=== PATIENT | female | born 1990 | race Caucasian/White ===

== ENCOUNTER 2023-09-04 20:07 | Emergency (ER) | payer OTHER, SELFPAY ==
[2023-09-04] VITALS (9 sets, daily range): BP systolic 140–153; BP diastolic 72–98; PULSE 88–101; TEMP 36.9; O2SAT 97–100; BMI 44.1
--- NOTE | 2023-09-04 20:16 | ED_ITS ---
Documented by User: VERNON Flores 09/04/23 21:26 HPI - Chest Pain General Chief Complaint: Chest Pain Stated Complaint: CP Time Seen by Provider: 09/04/23 20:08 Source: patient Mode of arrival: Wheelchair History of Present Illness HPI narrative: Patient is a 33-year-old female with a history of anxiety, ADHD and bipolar disorder who presents to the emergency department for sharp pain in the sternum that began while she was working. She states the pain is easing at this time but she had sharp stabbing pain in the sternum radiating through to her back between her shoulder blades and up to her jaw. She denies any burning. She states the pain is worse with deep breathing and coughing. She has had a 2-week history of upper respiratory illness with cough and congestion. She smokes 2 to 3 cigarettes/day and uses a vape. She is not concerned for , she has a Mirena in place. She has not had any swelling in the legs. She has no history of cardiac or pulmonary issues. She states she has been particularly stressed and anxious in the last 2 weeks. No medications taken prior to arrival. Risk Factors Coronary artery disease risk factors: smoking history Related Data Home Medications ?Medication ?Instructions ?Recorded ?Confirmed dextroamphetamine-amphetamine 10 10 mg PO DAILY 09/04/23 09/04/23 mg tablet gabapentin 800 mg tablet 800 mg PO BID 09/04/23 09/04/23 lamotrigine 200 mg tablet 200 mg PO BID 09/04/23 09/04/23 lisdexamfetamine 70 mg capsule 70 mg PO QPM 09/04/23 09/04/23 (Vyvanse) trazodone 100 mg tablet 100 mg PO DAILY 09/04/23 09/04/23 Previous Rx's ?Medication ?Instructions ?Recorded doxycycline hyclate 100 mg tablet 100 mg PO BID 7 days #14 tabs 09/04/23 hydroxyzine pamoate 25 mg capsule 25 mg PO Q6H PRN anxiety #20 caps 09/04/23 (Vistaril) methylprednisolone 4 mg tablets in See Rx Instructions .Route 09/04/23 a dose pack (Medrol (Elder)) .COMPLEX #21 ea Allergies Allergy/AdvReac Type Severity Reaction Status Date / Time sulfamethoxazole Allergy Severe Verified 09/04/23 20:15 [From Bactrim] trimethoprim [From Bactrim] Allergy Severe Verified 09/04/23 20:15 Review of Systems ROS Constitutional Denies: fever or chills Ears, nose, mouth, and throat Reports: nasal congestion Cardiovascular Reports: chest pain and palpitations Respiratory Reports: shortness of breath and cough Gastrointestinal Denies: abdominal pain, nausea or vomiting Musculoskeletal Denies: back pain or neck pain Integumentary/Breast Denies: rash Psychiatric Reports: anxiety Hematologic/Lymphatic Denies: easy bruising or easy bleeding [facility] Medical History (Updated 09/04/23 @ 21:15 by VERNON Flores) Depression ?F32.A - Depression, unspecified (ICD-10) Bipolar 1 disorder ?F31.9 - Bipolar disorder, unspecified (ICD-10) Exam Narrative Exam Narrative: Gen.: Awake, alert, in no distress Head: Normocephalic, atraumatic ENT: Moist mucous membranes; Bilateral TMs clear, no pharyngeal erythema with airway widely open and patent, uvula midline Respiratory: No respiratory distress, lungs clear bilaterally Cardio: Regular rate and rhythm Extremities: Moves extremities equally, no pedal edema Psych: Normal mood and affect Neuro: No focal neuro deficit Skin: Warm, dry, intact Constitutional Vital Signs, click to edit/add: Last Vital Signs Temp 98.5 F 09/04/23 20:11 Pulse 91 H 09/04/23 21:35 Resp 14 09/04/23 21:35 BP 140/72 09/04/23 21:35 Pulse Ox 97 09/04/23 21:35 O2 Del Method Room Air 09/04/23 21:35 Course Vital Signs Vital signs: Vital Signs Temperature 98.5 F 09/04/23 20:11 Pulse Rate 88 09/04/23 20:11 Respiratory Rate 18 09/04/23 20:11 Blood Pressure 153/89 H 09/04/23 20:11 Pulse Oximetry 100 09/04/23 20:11 Oxygen Delivery Method Room Air 09/04/23 20:11 Temperature 98.5 F 09/04/23 20:11 Pulse Rate 91 H 09/04/23 21:35 Respiratory Rate 14 09/04/23 21:35 Blood Pressure 140/72 09/04/23 21:35 Pulse Oximetry 97 09/04/23 21:35 Oxygen Delivery Method Room Air 09/04/23 21:35 MDM - Chest Pain MDM Narrative Medical decision making narrative: Patient treated with IV Ativan, She had improvement and is resting comfortably on reevaluation. Lab studies including D-dimer and troponin are within normal limits. Chest x-ray is unremarkable and patient has stable vital signs in the ER. Discussed with the patient that anxiety may be playing a role in her symptoms, although she has had a 2-week history of upper respiratory illness and is a current smoker. She may be experiencing pleurisy and will be treated with doxycycline based on the duration of her symptoms as well as Medrol Dosepak. She was given hydroxyzine as needed for breakthrough anxiety if she takes only BuSpar for anxiety at home. Follow-up with PCP. Patient is appreciative for care. Return to the ER if symptoms change or worsen. Medical Records Data Attestation: I reviewed the patient's medical records. Lab Data Attestation: I reviewed the patient's lab results. Labs: Lab Results 09/04/23 Range/Units 20:23 WBC 10.5 (4.0-11.0) 10^3/uL RBC 3.80 L (4.20-5.40) 10^6/uL Hgb 11.3 L (12.0-16.0) g/dL Hct 34.2 L (36.0-48.0) % MCV 90.0 (81.0-99.0) fL MCH 29.7 (26.7-34.0) pg MCHC 33.0 (29.9-35.2) g/dL RDW 12.2 (11.0-15.0) % Plt Count 263 (150-450) 10^3/uL MPV 9.2 L (9.5-13.5) fL Neut % (Auto) 68.2 (43.0-75.0) % Lymph % (Auto) 24.4 (20.5-60.0) % Major % (Auto) 5.7 (1.7-12.0) % Eos % (Auto) 1.1 (0.9-7.0) % Baso % (Auto) 0.3 (0.2-2.0) % Neut # (Auto) 7.2 H (1.4-6.5) 10^3/uL Lymph # (Auto) 2.6 (1.2-3.8) 10^3/uL Major # (Auto) 0.6 (0.3-0.8) 10^3/uL Eos # (Auto) 0.1 (0.0-0.7) 10^3/uL Baso # (Auto) 0.0 (0.0-0.1) 10^3/uL Abs Immat Gran (auto) 0.03 (0.00-0.03) 10^3/uL Imm/Tot Granulo (auto) 0.3 (0.0-0.5) % PT 10.1 (9.0-11.6) sec INR 0.95 D-Dimer 0.27 (<=0.59) mg/L FEU Sodium 137 (136-145) mmol/L Potassium 3.6 (3.5-5.1) mmol/L Chloride 101 (98-107) mmol/L Carbon Dioxide 27.2 (21.0-32.0) mmol/L Anion Gap 12.4 BUN 10.0 (7.0-18.0) mg/dL Creatinine 0.75 (0.55-1.02) mg/dL Est GFR ( Amer) >60 (>=60) Est GFR (Non-Af Amer) >60 (>=60) BUN/Creatinine Ratio 13.3 Glucose 85 (74-106) mg/dL Calcium 9.3 (8.5-10.1) mg/dL Total Bilirubin 0.5 (0.2-1.0) mg/dL AST 20 (15-37) U/L ALT 20 (14-59) U/L Alkaline Phosphatase 97 (46-116) U/L Troponin I High Sens <4.0 L (4.0-51.3) pg/mL NT-Pro-B Natriuret Pep 170.0 (<=450.0) pg/mL Total Protein 7.5 (6.4-8.2) g/dL Albumin 3.7 (3.4-5.0) g/dL Globulin 3.8 g/dL Albumin/Globulin Ratio 1.0 Imaging Data Chest x-ray: Attestation: I have reviewed the pertinent imaging results. Radiologist's impression: ITS Impressions Chest X-Ray 09/04/23 20:50 IMPRESSION: No acute cardiopulmonary process. Electronically authenticated by: YULIYA LOCKE Date: 09/04/2023 21:17 Procedure: XR chest 1V EXAM: XR chest 1V HISTORY: Chest pain COMPARISON: None. TECHNIQUE: Single AP radiograph of the chest FINDINGS: No pneumothorax, pleural effusion or consolidation. Normal heart size. No acute osseous abnormality. IMPRESSION: No acute cardiopulmonary process. Electronically authenticated by: YULIYA LOCKE Date: 09/04/2023 21:17 ECG Data Attestation: I personally reviewed and interpreted this ECG as follows: (Normal sinus rhythm at a rate of 90, no acute ST elevation or ectopy. EKG reviewed by attending physician) Heart Score History: Moderately Suspicious ECG: Normal Age: <45 years Risk Factors: >3 Risk Factors/ HX of CAD:2 Troponin: <Normal Limit Total Heart Score Recommendations & Risks:: 3 Discharge Plan Discharge Stand Alone Forms: Portal Instructions Chief Complaint: Chest Pain Clinical Impression: Chest pain Patient Disposition: Home, Self-Care Time of Disposition Decision: 21:15 Condition: Good Prescriptions / Home Meds: New methylprednisolone [Medrol (Elder)] 4 mg tablets,dose pack See Rx Instructions .ROUTE .COMPLEX Qty: 21 0RF Rx Instructions: Taper as directed doxycycline hyclate 100 mg tablet 100 mg PO BID 7 Days Qty: 14 0RF hydroxyzine pamoate [Vistaril] 25 mg capsule 25 mg PO Q6H PRN (Reason: anxiety) Qty: 20 0RF No Action dextroamphetamine-amphetamine 10 mg tablet 10 mg PO DAILY gabapentin 800 mg tablet 800 mg PO BID lamotrigine 200 mg tablet 200 mg PO BID lisdexamfetamine [Vyvanse] 70 mg capsule 70 mg PO QPM trazodone 100 mg tablet 100 mg PO DAILY Print Language: Nauruan Instructions: Chest Pain (ED) Referrals: RODRIGO WALKER [Primary Care Provider] - 1 week Discharge Date/Time: 09/04/23 21:36 Documented by User: Ned Gr MD 09/08/23 19:17 HPI - Chest Pain General Chief Complaint: Chest Pain Stated Complaint: CP Time Seen by Provider: 09/04/23 20:08 Related Data Home Medications ?Medication ?Instructions ?Recorded ?Confirmed dextroamphetamine-amphetamine 10 10 mg PO DAILY 09/04/23 09/04/23 mg tablet gabapentin 800 mg tablet 800 mg PO BID 09/04/23 09/04/23 lamotrigine 200 mg tablet 200 mg PO BID 09/04/23 09/04/23 lisdexamfetamine 70 mg capsule 70 mg PO QPM 09/04/23 09/04/23 (Vyvanse) trazodone 100 mg tablet 100 mg PO DAILY 09/04/23 09/04/23 Previous Rx's ?Medication ?Instructions ?Recorded doxycycline hyclate 100 mg tablet 100 mg PO BID 7 days #14 tabs 09/04/23 hydroxyzine pamoate 25 mg capsule 25 mg PO Q6H PRN anxiety #20 caps 09/04/23 (Vistaril) methylprednisolone 4 mg tablets in See Rx Instructions .Route 09/04/23 a dose pack (Medrol (Elder)) .COMPLEX #21 ea Allergies Allergy/AdvReac Type Severity Reaction Status Date / Time sulfamethoxazole Allergy Severe Verified 09/04/23 20:15 [From Bactrim] trimethoprim [From Bactrim] Allergy Severe Verified 09/04/23 20:15 [facility] Medical History (Updated 09/04/23 @ 21:15 by VERNON Flores) Depression ?F32.A - Depression, unspecified (ICD-10) Bipolar 1 disorder ?F31.9 - Bipolar disorder, unspecified (ICD-10) Exam Constitutional Vital Signs, click to edit/add: Last Vital Signs Temp 98.5 F 09/04/23 20:11 Pulse 91 H 09/04/23 21:35 Resp 14 09/04/23 21:35 BP 140/72 09/04/23 21:35 Pulse Ox 97 09/04/23 21:35 O2 Del Method Room Air 09/04/23 21:35 Course Vital Signs Vital signs: Vital Signs Temperature 98.5 F 09/04/23 20:11 Pulse Rate 88 09/04/23 20:11 Respiratory Rate 18 09/04/23 20:11 Blood Pressure 153/89 H 09/04/23 20:11 Pulse Oximetry 100 09/04/23 20:11 Oxygen Delivery Method Room Air 09/04/23 20:11 Temperature 98.5 F 09/04/23 20:11 Pulse Rate 91 H 09/04/23 21:35 Respiratory Rate 14 09/04/23 21:35 Blood Pressure 140/72 09/04/23 21:35 Pulse Oximetry 97 09/04/23 21:35 Oxygen Delivery Method Room Air 09/04/23 21:35 MDM - Chest Pain Lab Data Labs: Lab Results 09/04/23 Range/Units 20:23 WBC 10.5 (4.0-11.0) 10^3/uL RBC 3.80 L (4.20-5.40) 10^6/uL Hgb 11.3 L (12.0-16.0) g/dL Hct 34.2 L (36.0-48.0) % MCV 90.0 (81.0-99.0) fL MCH 29.7 (26.7-34.0) pg MCHC 33.0 (29.9-35.2) g/dL RDW 12.2 (11.0-15.0) % Plt Count 263 (150-450) 10^3/uL MPV 9.2 L (9.5-13.5) fL Neut % (Auto) 68.2 (43.0-75.0) % Lymph % (Auto) 24.4 (20.5-60.0) % Major % (Auto) 5.7 (1.7-12.0) % Eos % (Auto) 1.1 (0.9-7.0) % Baso % (Auto) 0.3 (0.2-2.0) % Neut # (Auto) 7.2 H (1.4-6.5) 10^3/uL Lymph # (Auto) 2.6 (1.2-3.8) 10^3/uL Major # (Auto) 0.6 (0.3-0.8) 10^3/uL Eos # (Auto) 0.1 (0.0-0.7) 10^3/uL Baso # (Auto) 0.0 (0.0-0.1) 10^3/uL Abs Immat Gran (auto) 0.03 (0.00-0.03) 10^3/uL Imm/Tot Granulo (auto) 0.3 (0.0-0.5) % PT 10.1 (9.0-11.6) sec INR 0.95 D-Dimer 0.27 (<=0.59) mg/L FEU Sodium 137 (136-145) mmol/L Potassium 3.6 (3.5-5.1) mmol/L Chloride 101 (98-107) mmol/L Carbon Dioxide 27.2 (21.0-32.0) mmol/L Anion Gap 12.4 BUN 10.0 (7.0-18.0) mg/dL Creatinine 0.75 (0.55-1.02) mg/dL Est GFR ( Amer) >60 (>=60) Est GFR (Non-Af Amer) >60 (>=60) BUN/Creatinine Ratio 13.3 Glucose 85 (74-106) mg/dL Calcium 9.3 (8.5-10.1) mg/dL Total Bilirubin 0.5 (0.2-1.0) mg/dL AST 20 (15-37) U/L ALT 20 (14-59) U/L Alkaline Phosphatase 97 (46-116) U/L Troponin I High Sens <4.0 L (4.0-51.3) pg/mL NT-Pro-B Natriuret Pep 170.0 (<=450.0) pg/mL Total Protein 7.5 (6.4-8.2) g/dL Albumin 3.7 (3.4-5.0) g/dL Globulin 3.8 g/dL Albumin/Globulin Ratio 1.0 Imaging Data Chest x-ray: Radiologist's impression: ITS Impressions Chest X-Ray 09/04/23 20:50 IMPRESSION: No acute cardiopulmonary process. Electronically authenticated by: YULIYA LOCKE Date: 09/04/2023 21:17 Heart Score Total Heart Score Recommendations & Risks:: 3 Discharge Plan Discharge Stand Alone Forms: Portal Instructions Chief Complaint: Chest Pain Clinical Impression: Chest pain Patient Disposition: Home, Self-Care Time of Disposition Decision: 21:15 Condition: Good Prescriptions / Home Meds: New methylprednisolone [Medrol (Elder)] 4 mg tablets,dose pack See Rx Instructions .ROUTE .COMPLEX Qty: 21 0RF Rx Instructions: Taper as directed doxycycline hyclate 100 mg tablet 100 mg PO BID 7 Days Qty: 14 0RF hydroxyzine pamoate [Vistaril] 25 mg capsule 25 mg PO Q6H PRN (Reason: anxiety) Qty: 20 0RF No Action dextroamphetamine-amphetamine 10 mg tablet 10 mg PO DAILY gabapentin 800 mg tablet 800 mg PO BID lamotrigine 200 mg tablet 200 mg PO BID lisdexamfetamine [Vyvanse] 70 mg capsule 70 mg PO QPM trazodone 100 mg tablet 100 mg PO DAILY Print Language: Nauruan Instructions: Chest Pain (ED) Referrals: RODRIGO WALKER [Primary Care Provider] - 1 week Discharge Date/Time: 09/04/23 21:36
--- NOTE | 2023-09-04 20:16 | ECG_ITS ---
[facility] Test Date: 2023-09-04 Pat Name: ZOHAIB BOSS Department: Room: - Gender: Female [employer]asing [employer]: : 1990 Requested By: Ashly Rosenberg Order Number: [id number] Reading MD: FAITH GIBBONS Measurements Intervals [place] Rate: 90 P: 48 ID: [id number] QRS: 77 QRSD: 92 T: 36 QT: 366 QTc: 413 Interpretive Statements 1100 Sinus rhythm 2420 RSR (QR) in lead V1/V2, consistent with right ventricular conduction delay 9130 borderline ECG No previous ECG available for comparison Electronically Signed On 09-06-2023 7:24:03 EDT by FAITH GIBBONS
[2023-09-04 20:30] LABS: Basophils Percent Auto 0.3 % (0.2-2.0); Eosinophils Absolute Auto 0.1 10^3/uL (0.0-0.7); Eosinophils Percent Auto 1.1 % (0.9-7.0); Hematocrit 34.2 % (36.0-48.0); Hemoglobin 11.3 g/dL (12.0-16.0); Immature Granulocytes Abs Auto 0.03 10^3/uL (0.00-0.03); Immature Granulocytes Pct Auto 0.3 % (0.0-0.5); Lymphocytes Absolute Auto 2.6 10^3/uL (1.2-3.8); Lymphocytes Percent Auto 24.4 % (20.5-60.0); Mean Corpuscular Hemoglobin 29.7 pg (26.7-34.0); Mean Platelet Volume 9.2 fL (9.5-13.5); Monocytes Absolute Auto 0.6 10^3/uL (0.3-0.8); Monocytes Percent Auto 5.7 % (1.7-12.0); Neutrophils Absolute Auto 7.2 10^3/uL (1.4-6.5); Neutrophils Percent Auto 68.2 % (43.0-75.0); Platelet Count 263 10^3/uL (150-450); Red Cell Distribution Width 12.2 % (11.0-15.0); White Blood Count 10.5 10^3/uL (4.0-11.0)
[2023-09-04] MEDS: LORAZEPAM 2 MG/ML VIAL 0.5 MG IV (20:35)
[2023-09-04 20:46] LABS: INR 0.95; Prothrombin Time 10.1 sec (9.0-11.6)
[2023-09-04 20:47] LABS: D Dimer 0.27 mg/L FEU (<=0.59)
[2023-09-04 20:49] LABS: Alanine Aminotransferase 20 U/L (14-59); Albumin Level 3.7 g/dL (3.4-5.0); Alkaline Phosphatase 97 U/L (46-116); Anion Gap 12.4; Aspartate Amino Transferase 20 U/L (15-37); BUN Creatinine Ratio 13.3; Bilirubin Total 0.5 mg/dL (0.2-1.0); Calcium 9.3 mg/dL (8.5-10.1); Carbon Dioxide 27.2 mmol/L (21.0-32.0); Chloride 101 mmol/L (98-107); Estimated GFR (African America >60 (>=60); Estimated GFR (Non-African Ame >60 (>=60); Globulin 3.8 g/dL; Glucose 85 mg/dL (74-106); Potassium 3.6 mmol/L (3.5-5.1); Sodium 137 mmol/L (136-145); Total Protein 7.5 g/dL (6.4-8.2)
--- NOTE | 2023-09-04 20:50 | XR_ITS ---
[address] [address] Patient Name: ZOHAIB BOSS MRN: [id number] date: 1990 Sex: F Assigned Patient Location: ER Current Patient Location: ED.MAIN Accession/Order Number: [id number] Exam Date: 09/04/2023 20:59 Report Date: 09/04/2023 21:17 At the request of: OTONIEL MIR Procedure: XR chest 1V EXAM: XR chest 1V HISTORY: Chest pain COMPARISON: None. TECHNIQUE: Single AP radiograph of the chest FINDINGS: No pneumothorax, pleural effusion or consolidation. Normal heart size. No acute osseous abnormality. XR/XR chest 1V IMPRESSION: No acute cardiopulmonary process. Electronically authenticated by: YULIYA LOCKE Date: 09/04/2023 21:17
[2023-09-04 20:56] LABS: Troponin I High Sensitivity <4.0 pg/mL (4.0-51.3)
[2023-09-04] MEDS: DOXYCYCLINE MONOHYDRATE 100 MG CAPSULE PO (21:25)
[2023-09-04] MEDS: HYDROXYZINE PAMOATE 25 MG CAPSULE PO (21:25)
[2023-09-04] MEDS: METHYLPREDNISOLONE SOD SUCC PF 125 MG/2 ML VIAL IVP (21:26)
== END 2023-09-04 21:36 | disposition home or self-care (01) ==
PROVIDERS: Physician Assistant; Emergency Provider Internal Medicine; PCP Nurse Practitioner Family
DX: R07.9 Chest pain, unspecified (principal); F41.9 Anxiety disorder, unspecified; F31.9 Bipolar disorder, unspecified; F90.9 Attention-deficit hyperactivity disorder, unspecified type; F17.210 Nicotine dependence, cigarettes, uncomplicated; F17.290 Nicotine dependence, other tobacco product, uncomplicated; Z79.899 Other long term (current) drug therapy; Z97.5 Presence of (intrauterine) contraceptive device
CPT/HCPCS: 36415; 71045; 80053; 83880; 84484; 85025; 85378; 85610; 93005; 96374; 96375; 99285; J2919